=== PATIENT | male | born 1960 | race Caucasian/White ===

== ENCOUNTER 2016-11-03 14:50 | Emergency (ER) | payer OTHER ==
[2016-11-03 14:56] VITALS: O2SAT 97
--- NOTE | 2016-11-03 15:18 | EDPHY ---
H & P Stated Complaint: Dull pain in abdomen x 1 day Time Seen by Provider: 11/03/16 15:02 - Personal History Current Tetanus Diphtheria and Acellular Pertussis (TDAP): Unsure - Medical/Surgical History Other PMH: Stroke 2013, afib dx in 2012 - Social History Smoking Status: Never smoked Constitutional: Initial Vital Signs Temperature (C) 37.4 C 11/03/16 14:53 Heart Rate 61 11/03/16 14:53 Respiratory Rate 14 11/03/16 14:53 Blood Pressure 131/75 H 11/03/16 14:53 O2 Sat (%) 97 11/03/16 14:53 O2 Delivery Mode Room Air Home Medications: Medication Instructions Recorded Rivaroxaban [Xarelto 10mg (*)] 10 mg PO 11/03/16 Simvastatin 10 mg PO 11/03/16 Medical Decision Making - Diagnostics Imaging: Imaging Impressions Abdomen CT 11/03/16 15:42 Impression: 1. Moderate stool in the proximal colon. 2. Diffuse bladder wall thickening with mild prostatic hypertrophy, which could be related to bladder outlet obstruction or less likely inflammation/infection. 3. Grade 1 spondylolytic spondylolisthesis of L5 on S1. 4. Additional findings as above. Findings discussed with Roman Hall MD, 11/03/2016 at 1643 hours. ED Course/Re-evaluation: CHIEF COMPLAINT: Abdominal pain HISTORY OF PRESENT ILLNESS: The patient is an anticoagulated 56 y/o male, with a history of atrial fibrillation, arriving with his complaining of gradually worsening lower abdominal pain since last night. His pain has been continuous and dull since onset and rated 6/10 in severity. The pain has somewhat localized to his RLQ. He has associated decrease in appetite and nausea. He was able to eat an apple today and denies aggravation of his pain after eating. He denies fever, vomiting, shortness of breath, or diarrhea. He has a history of an umbilical hernia surgery repair and normal colonoscopy. He denies other abdominal surgeries. REVIEW OF SYSTEMS: A 10 point review of systems was performed and is negative with the exception of the elements mentioned in the history of present illness. PHYSICAL EXAM: HR, BP, O2 Sat, RR. Temp noted General Appearance: Alert, well hydrated, appropriate, and non-toxic appearing. Head: Atraumatic without scalp tenderness or obvious injury Eyes: Pupils equal, round, reactive to light and accommodation, EOMI, no trauma , no injection. Nose: Atraumatic, no rhinorrhea, clear. Throat: mucus membranes moist. Neck: Supple, nontender, no lymphadenopathy. Respiratory: No retractions, no distress, no wheezes, and no accessory muscle use. Lungs are clear to auscultation bilaterally. Cardiovascular: Regular rate and rhythm, no murmurs, rubs, or gallops. Good capillary refill all extremities. Gastrointestinal: Abdomen is soft, RLQ tenderness, non-distended, no masses, no rebound, no guarding, no peritoneal signs. Musculoskeletal: Normal active ROM of all extremities, atraumatic. Neurological: Alert, appropriate, and interactive. Nonfocal neuro exam. Skin: No rashes, good turgor, no nodules on palpation. Past medical history: Hypercholesteremia, atrial fibrillation - Xarelto, stroke Past surgical history: Umbilical hernia repair, 2 ablations. Normal colonoscopy. Family history: noncontributory Social history: [id number]. DIAGNOSTICS/PROCEDURES/CRITICAL CARE TIME: Abdominal CT. I viewed the images myself on the PACS system. DIFFERENTIAL DIAGNOSIS: The differential diagnosis for the patient's abdominal pain included but was not limited to constipation, appendicitis, cholecystitis, hernias, testicular torsion, gastritis, and urinary tract infection. MEDICAL DECISION MAKING: This is a 56 y/o male with a history of atrial fibrillation presenting with a 24 -hour history of continuous lower abdominal pain that has localized more to his RLQ. He has associated nausea and anorexia with his pain and he does have RLQ tenderness on exam. He has no known history of GI disease. Plan for standard abdominal pain workup including IV, labs, and abdominal CT. 1mg IV Dilaudid, 4mg IV Zofran, and 1L IV NS administered. CT shows constipation per Dr. Londono. I discussed images with the patient and answered all his questions. I recommended using Miralax and Gatorade to treat his constipation. He is comfortable with this plan. Return precautions given. - Data Points Laboratory Results: Laboratory Results 11/03/16 15:30 11/03/16 15:30 11/03/16 11/03/16 15:30 15:30 WBC 9.07 10^3/uL 10^3/uL (3.80-9.50) RBC 4.68 10^6/uL 10^6/uL (4.40-6.38) Hgb 14.5 g/dL g/dL (13.7-17.5) Hct 43.3 % % (40.0-51.0) MCV 92.5 fL fL (81.5-99.8) MCH 31.0 pg pg (27.9-34.1) MCHC 33.5 g/dL g/dL (32.4-36.7) RDW 11.9 % % (11.5-15.2) Plt Count 167 10^3/uL 10^3/uL (150-400) MPV 10.0 fL fL (8.7-11.7) Neut % (Auto) 73.4 % % (39.3-74.2) Lymph % (Auto) 17.9 % % (15.0-45.0) [place] % (Auto) 7.2 % % (4.5-13.0) Eos % (Auto) 0.9 % % (0.6-7.6) Baso % (Auto) 0.2 % L % (0.3-1.7) Nucleat RBC Rel Count 0.0 % % (0.0-0.2) Absolute Neuts (auto) 6.66 10^3/uL H 10^3/uL (1.70-6.50) Absolute Lymphs (auto) 1.62 10^3/uL 10^3/uL (1.00-3.00) Absolute Monos (auto) 0.65 10^3/uL 10^3/uL (0.30-0.80) Absolute Eos (auto) 0.08 10^3/uL 10^3/uL (0.03-0.40) Absolute Basos (auto) 0.02 10^3/uL 10^3/uL (0.02-0.10) Absolute Nucleated RBC 0.00 10^3/uL 10^3/uL (0-0.01) Immature Gran % 0.4 % % (0.0-1.1) Immature Gran # 0.04 10^3/uL 10^3/uL (0.00-0.10) Sodium 135 mEq/L mEq/L (134-144) Potassium 3.8 mEq/L mEq/L (3.5-5.2) Chloride 100 mEq/L mEq/L (97-110) Carbon Dioxide 25 mEq/l mEq/l (22-31) Anion Gap 10 mEq/L mEq/L (8-16) BUN 14 mg/dL mg/dL (7-23) Creatinine 0.8 mg/dL mg/dL (0.7-1.3) Estimated GFR > 60 Glucose 95 mg/dL mg/dL (70-100) Calcium 9.2 mg/dL mg/dL (8.5-10.4) Total Bilirubin 1.4 mg/dL mg/dL (0.1-1.4) Conjugated Bilirubin 0.3 mg/dL mg/dL (0.0-0.5) Unconjugated Bilirubin 1.1 mg/dL mg/dL (0.0-1.1) AST 25 IU/L IU/L (17-59) ALT 38 IU/L IU/L (21-72) Alkaline Phosphatase 58 IU/L IU/L (38-126) Total Protein 6.9 g/dL g/dL (6.3-8.2) Albumin 4.2 g/dL g/dL (3.5-5.0) Lipase 88.0 IU/L IU/L (23-300) Medications Given: Discontinued Medications Hydromorphone HCl (Dilaudid) 1 mg IVP EDNOW ONE Stop: 11/03/16 15:42 Last Admin: 11/03/16 15:50 Dose: Not Given Sodium Chloride (Ns) 1,000 mls @ 0 mls/hr IV ONCE ONE PRN Reason: Wide Open Stop: 11/03/16 15:46 Last Admin: 11/03/16 15:50 Dose: 1,000 mls Ondansetron HCl (Zofran) 4 mg IVP EDNOW ONE Stop: 11/03/16 15:42 Last Admin: 11/03/16 15:51 Dose: 4 mg Departure - Departure Disposition: Home, Routine, Self-Care Clinical Impression: Constipation Qualifiers: Constipation type: other constipation type Qualified Code(s): K59.09 - Other constipation Condition: Good Instructions: Polyethylene Glycol 3350 (By mouth), Constipation (ED), High Fiber Diet (ED) Additional Instructions: 1. Use 1/2 bottle Miralax mixed with 1/2 gallon of Gatorade and drink it over the course of an hour for constipation. Do not use this treatment while traveling. 2. Follow up with your primary care provider upon your return home for symptoms unimproved over the next 2-3 days. 3. Return to the ED for severe pain, vomiting, uncontrollable fever, or other worsening of condition. Referrals: OUT,OF STATE [Other] - As per Instructions Carlos Freeman MD [Medical Doctor] - As per Instructions Report Scribed for: Roman Hall Report Scribed by: Courtney Lu Date of Report: 11/03/16 Time of Report: 15:31
[2016-11-03] MEDS ORDERED: HYDROmorphONE/DILAUDID 1 MG/ML SYR IVP ONE (15:41)
[2016-11-03] MEDS ORDERED: ONDANSETRON 4 MG/2 ML VIAL IVP ONE (15:41)
[2016-11-03] MEDS ORDERED: NS 1,000 ML IV ONE (15:45)
[2016-11-03 15:50] LABS: % IMMATURE GRANULYOCYTES 0.4 % (0.0-1.1); ABSOLUTE IMMATURE GRANULOCYTES 0.04 10^3/uL (0.00-0.10); ADD DIFF? NO; ADD MORPH? NO; ADD SCAN? NO; ATYPICAL LYMPHOCYTE FLAG 0 (0-99); FRAGMENT RBC FLAG 0 (0-99); HEMATOCRIT 43.3 % (40.0-51.0); HEMOGLOBIN 14.5 g/dL (13.7-17.5); LEFT SHIFT FLG 0 (0-99); LIPEMIA HEMOLYSIS FLAG 80 (0-99); MEAN CELL HEMOGLOBIN CONCENTR. 33.5 g/dL (32.4-36.7); MEAN CELL VOLUME 92.5 fL (81.5-99.8); PLATELET CLUMPS FLAG 0 (0-99); PLATELET COUNT 167 10^3/uL (150-400); RED BLOOD CELL COUNT 4.68 10^6/uL (4.40-6.38); RED CELL DISTRIBUTION WIDTH 11.9 % (11.5-15.2)
[2016-11-03 16:04] LABS: ALANINE AMINOTRANSFERASE 38 IU/L (21-72); ALBUMIN 4.2 g/dL (3.5-5.0); ALKALINE PHOSPHATASE 58 IU/L (38-126); ANION GAP 10 mEq/L (8-16); ASPARTATE AMINOTRANSFERASE 25 IU/L (17-59); BILIRUBIN,TOTAL 1.4 mg/dL (0.1-1.4); BILIRUBIN-CONJUGATED 0.3 mg/dL (0.0-0.5); BILIRUBIN-UNCONJUGATED 1.1 mg/dL (0.0-1.1); CALCIUM 9.2 mg/dL (8.5-10.4); CARBON DIOXIDE 25 mEq/l (22-31); CHLORIDE 100 mEq/L (97-110); CREATININE 0.8 mg/dL (0.7-1.3); GLOMERULAR FILTRATION RATE > 60; GLUCOSE 95 mg/dL (70-100); POTASSIUM 3.8 mEq/L (3.5-5.2); SODIUM 135 mEq/L (134-144); TOTAL PROTEIN 6.9 g/dL (6.3-8.2)
[2016-11-03] MEDS ORDERED: IOPAMIDOL (ISOVUE-300) 100 ML BTL IV ONE (16:08)
[2016-11-03 17:00] VITALS: BP 128/61; PULSE 72; RESP 16; TEMP 98.2
== END 2016-11-03 16:59 | disposition home or self-care (01) ==
DX: K59.09 Other constipation (principal); Z79.01 Long term (current) use of anticoagulants
CPT/HCPCS: 96374; J1170; J2405; Q9967